=== PATIENT | male | born 1960 | race Caucasian/White ===

== ENCOUNTER 2020-12-09 07:48 | Inpatient (IN) | payer SELFPAY ==
[2020-12-09 09:16] LABS: MEAN CORPUSCULAR HEMOGLOBIN 32.6 pg (27.0-33.0); MEAN CORPUSCULAR VOLUME 95.8 fl (80.0-96.0); PLATELET COUNT, AUTOMATED 135 10^3/uL (150-450); RED BLOOD COUNT 5.22 10^6/uL (4.30-6.10); WHITE BLOOD COUNT 10.4 10^3/uL (4.0-10.0)
[2020-12-09 09:46] LABS: AMPHETAMINES LEVEL URINE POSITIVE (NEGATIVE); BARBITURATES URINE NEGATIVE (NEGATIVE); BENZODIAZEPINES URINE NEGATIVE (NEGATIVE); CANNABINOIDS URINE NEGATIVE (NEGATIVE); COCAINE METABOLITE URINE NEGATIVE (NEGATIVE); METHADONE URINE NEGATIVE (NEGATIVE); OPIATES URINE NEGATIVE (NEGATIVE); PHENCYCLIDINE URINE NEGATIVE (NEGATIVE)
[2020-12-09 09:48] LABS: ACETAMINOPHEN LEVEL < 2.0 UG/ML (10.0-30.0); ALBUMIN 4.4 GM/DL (3.2-5.2); ALT/SGPT 61 U/L (12-78); BILIRUBIN,DIRECT 0.2 MG/DL (0.0-0.2); BILIRUBIN,TOTAL 0.7 MG/DL (0.2-1.0); BLOOD UREA NITROGEN 16 MG/DL (7-18); CALCIUM LEVEL 9.2 MG/DL (8.5-10.1); CARBON DIOXIDE LEVEL 26 MEQ/L (21-32); CHLORIDE LEVEL 109 MEQ/L (98-107); CREATININE FOR GFR 0.93 MG/DL (0.70-1.30); ETHYL ALCOHOL (ETHANOL) < 0.003 % (0.000-0.010); GLOMERULAR FILTRATION RATE > 60.0 (>56); GLUCOSE, FASTING 107 MG/DL (70-100); POTASSIUM SERUM 3.9 MEQ/L (3.5-5.1); SALICYLATE LEVEL 2.4 MG/DL (5.0-30.0); SODIUM LEVEL 142 MEQ/L (136-145); TOTAL PROTEIN 7.4 GM/DL (6.4-8.2)
[2020-12-10 16:15] LABS: RSV AMPLIFICATION NEGATIVE (NEGATIVE)
[2020-12-10] MEDS ORDERED: traZODone 50 MG TAB PO PRN (17:00)
[2020-12-10] MEDS ORDERED: MAALOX 30 ML SUSP *UDC PO PRN (17:00)
[2020-12-10] MEDS ORDERED: MOM 30ML SUSPENSION UDC PO PRN (17:00)
[2020-12-10] MEDS ORDERED: OLANZapine ORAL DISINTEGRATING TAB 5MG PO PRN (17:00)
[2020-12-10] MEDS ORDERED: ACETAMINOPHEN TAB 650MG DOSE (2X325MG) PO PRN (17:00)
[2020-12-10] MEDS: risperiDONE 1 MG TAB PO SCH (21:00)
[2020-12-11] VITALS: BP 130/90
[2020-12-11 06:57] VITALS: BP 135/69
[2020-12-11] MEDS ORDERED: NICOTINE 21MG/24HR 1 EA TRANSDERMAL TD SCH (09:00)
[2020-12-11] MEDS: risperiDONE 1 MG TAB PO SCH (09:00)
--- NOTE | 2020-12-11 11:12 | MHHPEPDOC ---
General Date Of Admission: Dec 10, 2020 Legal Status: 9.39 Chief Complaint I think the previous was corrupt. They should have taken my friend into custody instead of me ". History of Present Illness HISTORY OF THE PRESENT ILLNESS: Patient is a 60 -year-old , male, who [has no previous psychiatric history. Patient came to [place] to go fishing with lady friends. She apparently had done acute paranoid episode and the friend called the police and was brought to emergency room and kept at the emergency room for 2 days before he was admitted to inpatient unit. Patient tested positive for amphetamine and the patient admits that he has used methamph etamine recently. Patient, however, denies any episodes of paranoia, although he claims that his friend told him that his ex- was in the hotel room while he was not there and he was very incensed about this and apparently kicked the friend out of his truck and the friend called the police. It appears that he had the acute paranoid episode, but now he claims that it's all misunderstanding, that he has no idea why he is in a psychiatric unit is worried about getting his truck and going back to [place]. He does not appear to be psychotic and he is denying any hallucination, paranoia at this time. Denies any thoughts of hurting anybody and is extremely anxious to go home. He was prescribed risperidone 1 mg at bedtime, but he refused it. He doesn't believe he needs any treatment]. Psychiatric Review of Systems Depression (2 or more weeks): denies Lisset (4 or more days of): denies Psychosis: denies PTSD: denies Anxiety: situational anxiety Past Psychiatric History Previous Psychiatric Diagnosis: [None]. Previous Psychiatric Admissions: [None]. Suicide Attempts: Denies any history of attempt or plan. No thoughts. Psychiatric Follow-up: [, Not in any treatment]. Psychiatric medications: [None].. He admits to past use of the several drugs including methamphetamine and recently used and his toxicology was a positive Past Medical History Medical Problems Denies any medical issues Head Injury: No Seizures: No Hospitalizations: No Surgeries: No Family Medical/Psychiatric HX Medical Problems Noncontributory Psychiatric Disorders: No Addiction: No Suicide Attemps/Completions: No Addiction History other (admits to using drugs in the past. Denies any ongoing addiction, but admits to recent use of methamphetamine) Social History Born in [place] Childhood: Uneventful, born in [place]. Abuse/Trauma:[Denies any]. Current Living Situation: [Lives alone after his divorce. He is managing a paint store]. Education: [High school]. Employment: [Private business]. Social Support: [Friend]. Legal: [Denies any legal history. No history of violence]. Marital: [Was there for 32 years, the last year is 1 son, but no contact]. Mental Status Examination General Appearance: well groomed, appears stated age Build: average Demeanor: average Eye Contact: average Behavior: cooperative Speech: clear, pressured, normal volume Mood: anxious Mood Alert, angry and anxious because of his current status, but appropriate and not hostile or suspicious. Thought Process: logical/linear Thought Content (Delusions): none reported, other (appears that he was paranoid. On the day of his admission to the ER) Thought Content (Other): none reported Thought Content (Aggressive): none reported Perception (Hallucinations): none reported Perception (Other): none reported Cognition (Impairment of): none reported Cognition(Intelligence Est.): average Oriented: Awake, Alert, Oriented times three Insight: fair Judgment: Fair Psychosis: Denies Diagnoses Appears acute episode of a drug-induced or paranoia, but not acutely psychotic at this time and does not appear to be suicidal or homicidal A-FIB/CHADSVASC A-FIB History Current/History of A-Fib/PAF?: No Current PO Anticoag Therapy: No Age/Risk Factor Scoring CHADSVASC: CHADSVASC Response (Comments) Value Gender Risk Factor Male 0 Hx of CHF No 0 Hx of HTN No 0 Hx of Stroke/TIA/or VTE No 0 Hx of Diabetes No 0 Hx of Vascular Disease No 0 Total 0 Treatment Treatment ordered: NONE Assessment Patient is not acutely paranoid at this time has no intent of harming anybody and doesn't appear to be clinically depressed. He is understandably anxious about his current situation and is asking for discharge so he can retrieve his vehicle or an return to [place]. We will discharge him with a strong recommendation to seek help for his methamphetamine use Initial Treatment Plan 1. Patient was admitted on a [9.39] status. 2. Complete history was obtained. 3. With patients permission, family will be contacted and database will be expanded. 4. Patients medication regimen will be reviewed and changed accordingly. 5. Patient will be provided with protected environment. 6. Patient will be treated with individual, group, and milieu therapies. 7. Patient will receive supportive psych-education. 8. Discharge planning will commence immediately. 9. Outpatient follow-up treatment will be strongly recommended. 10. The initial treatment plan will focus initially on: * Depression. * Risk for suicide. ESTIMATED LENGTH OF STAY: - DAYS. TIME SPENT COUNSELING AND COORDINATING INITIAL CARE: minutes. Tobacco Cessation Screen If Patient is a Smoker Patient is a smoker but does not want any smoke cessation treatment because he may not want to quit Tobacco Cessation Tx Ordered?: No r/t failed trials N/A-No Antipsychotics Vital Signs Vital Signs Date Time Temp Pulse Resp B/P (MAP) Pulse Ox O2 Delivery O2 Flow Rate FiO2 12/11/20 06:57 98.1 52 20 135/69 (91) 96 Room Air Laboratory Data 24H Labs Laboratory Tests 2 12/10/20 14:43: Coronavirus (COVID-19)(PCR) NEGATIVE, Influenza Type A (RT-PCR) NEGATIVE, Influenza Type B (RT-PCR) NEGATIVE, Respiratory Syncytial Virus (PCR) NEGATIVE Medications No Active Prescriptions or Reported Meds Allergies Coded Allergies: No Known Allergies (Unverified , 12/09/20) RADHA COLLADO M.D. Dec 11, 2020 11:12
--- NOTE | 2020-12-11 12:05 | HPEPDOC ---
[facility] Medical History & Physical Date of Admission Dec 11, 2020 Date of Service: Dec 11, 2020 History and Physical PATIENT WAS DISCHARGED PRIOR TO BEING SEEN BY A MEDICAL PHYSICIAN. Vital Signs Vital Signs Date Time Temp Pulse Resp B/P (MAP) Pulse Ox O2 Delivery O2 Flow Rate FiO2 12/11/20 06:57 98.1 52 20 135/69 (91) 96 Room Air Laboratory Data Labs 24H Laboratory Tests 2 12/10/20 14:43: Coronavirus (COVID-19)(PCR) NEGATIVE, Influenza Type A (RT-PCR) NEGATIVE, Influenza Type B (RT-PCR) NEGATIVE, Respiratory Syncytial Virus (PCR) NEGATIVE Home Medications No Active Prescriptions or Reported Meds Allergies Coded Allergies: No Known Allergies (Unverified , 12/09/20) A-FIB/CHADSVASC A-FIB History Current/History of A-Fib/PAF?: No Current PO Anticoag Therapy: No Age/Risk Factor Scoring CHADSVASC: CHADSVASC Response (Comments) Value Age Risk Factor Age < 65 years old 0 Gender Risk Factor Male 0 Hx of CHF No 0 Hx of HTN No 0 Hx of Stroke/TIA/or VTE No 0 Hx of Diabetes No 0 Hx of Vascular Disease No 0 Total 0 Treatment Treatment ordered: NONE REINIER TERRAZAS MD Dec 11, 2020 12:04
--- NOTE | 2020-12-12 11:27 | MHDSPDOC ---
[facility] Discharge Summary Discharge Summary DATE OF ADMISSION: Dec 10, 2020 at 17:00 DATE OF DISCHARGE: Dec 11, 2020 at 11:08 DISCHARGE DIAGNOSES: 1. . Drug-induced paranoid episode 2. . Methamphetamine abuse REASON FOR ADMISSION: Patient was brought the emergency room by police on December 07 after he became quite paranoid and his friend called the police. He was kept at the emergency room for 2 days and when he arrived on the unit. He was denying any hallucination and paranoia and claims that it was ordered misunderstanding. He is minimizing his methamphetamine use, but denies any command hallucination. Denies any serious depression. Denies any suicidal thoughts and is requesting and demanding discharge. CONSULTANTS INVOLVED: None TREATMENT AND PROGRESS ON THE UNIT : Patient was seen for supportive therapy and was prescribed risperidone 1 mg at bedtime, but patient refused to take risperidone. He does not believe he has any major problem is minimizing his amphetamine use which was positive in his tox screen. He is however in good control in good contact. He is not showing any paranoid symptoms. His speech is rational, coherent, and his thoughts. Didn't show any gross psychotic symptoms and is denying any lethality issues. 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 HOSPITAL COURSE: The evaluation does not show any current active paranoid symptoms and is not showing any dangerous behavior and does not appear to be suicidal or homicidal and does not show any ground to continue his involuntary r etention, so he will be discharged with the recommendation to seek outpatient treatment in [place]. DISCHARGE ASSESSMENT: , Stable. Not psychotic and not clinically depressed and no signs of lethality MENTAL STATUS EXAMINATION ON DISCHARGE: Patient is a 60-year old male, who is in good control and contact and cooperative. Speech is pressured but rational, coherent. Language skills are good. Thought processes including: Coherent . Thought content: . No gross delusional thoughts. No suicidal thoughts. Abstract reasoning, and computation: , Fair. Description of associations: Well-organized. Description of abnormal or psychotic thoughts: Non-. Judgment: , Fair. Insight: Poor . Orientation to , well-oriented. Recent and remote memory: , Fair. Attention span and concentration: Failure. Language: . Fund of knowledge: Average. Mood: , Mildly anxious. Affect: A little irritable, but appropriate with good range. MEDICATIONS ON DISCHARGE: - for .. No medication was given - for . - for . PLAN/FOLLOWUP ARRANGEMENTS: To follow up in [place]. The amount of time spent in the coordination of care for this patient was approximately 40 minutes. ETOH/Disorder Med Rx ETOH/DRUG DISORDER RX: N/A Vital Signs/I&Os Vital Signs Date Time Temp Pulse Resp B/P (MAP) Pulse Ox O2 Delivery O2 Flow Rate FiO2 12/11/20 06:57 98.1 52 20 135/69 (91) 96 Room Air Medications No Active Prescriptions or Reported Meds Allergies Coded Allergies: No Known Allergies (Unverified , 12/09/20) RADHA COLLADO M.D. Dec 12, 2020 11:27
== END 2020-12-11 11:08 | disposition home or self-care (01) | DRG 776 ==
LOC: EDBD 07:48 → M ED 07:48 → CANBEDREQ 12-10 14:16 → M ED INP 12-10 17:00 → M PSY 12-10 23:40
PROVIDERS: ADMIT Psychiatry & Neurology Psychiatry; ATTEND Psychiatry & Neurology Psychiatry
DX: F15.14 Other stimulant abuse with stimulant-induced mood disorder (principal)